=== PATIENT | male | born 1955 | race Caucasian/White ===

== ENCOUNTER 2017-09-13 10:36 | Emergency (ER) | payer BC ==
[~2017-09-13] VITALS: Ht 180.3 cm; Wt 95.0 kg
[2017-09-13 10:57] LABS: BASOPHILS % (AUTO) 0.5 % (0-1); EOSINOPHILS # (AUTO) 0.2 X10'3 (0-0.9); HEMATOCRIT 41.8 % (42.0-52.0); HEMOGLOBIN 14.3 g/dl (14.0-17.9); LYMPHOCYTES # (AUTO) 1.3 X10'3 (1.1-4.8); LYMPHOCYTES % (AUTO) 17.1 % (21-51); MEAN CORPUSCULAR HGB CONC 34.3 % (33.0-36.5); MEAN CORPUSCULAR VOLUME 90.6 FL (78-98); MEAN PLATELET VOLUME 9.2 FL (7.4-10.4); MONOCYTES # (AUTO) 0.5 X10'3 (0-0.9); MONOCYTES % (AUTO) 6.8 % (2-12); NEUTROPHILS # (AUTO) 5.8 X10'3 (1.8-7.7); NEUTROPHILS % (AUTO) 73.6 % (42-75); PLATELET COUNT 201 X10'3 (140-440); RED BLOOD COUNT 4.62 X10'6 (4.70-6.10); RED CELL DISTRIBUTION WIDTH 15.2 % (11.5-14.5); WHITE BLOOD COUNT 7.9 X10'3 (4.5-11.0)
[2017-09-13 11:08] LABS: PARTIAL THROMBOPLASTIN TIME 25 SECONDS (22-32); PROTHROMBIN TIME 10.3 SECONDS (9.0-12.0)
[2017-09-13 11:15] LABS: ALANINE AMINOTRANSFERASE 21 U/L (12-78); ALBUMIN 3.5 G/DL (3.4-5.0); ALBUMIN/GLOBULIN RATIO 0.9 (1.1-1.5); ALKALINE PHOSPHATASE 52 IU/L (46-116); ANION GAP 10 (8-16); ASPARTATE AMINO TRANSFERASE 15 U/L (10-37); BILIRUBIN,TOTAL 0.5 MG/DL (0.1-1.0); BLOOD UREA NITROGEN 21 MG/DL (7-18); CALCIUM 8.5 MG/DL (8.5-10.1); CHLORIDE 107 MMOL/L (99-107); CREATININE 1.31 MG/DL (0.60-1.10); GLUCOSE 117 MG/DL (70-104); POTASSIUM 3.7 MMOL/L (3.5-5.1); SODIUM 142 MMOL/L (135-145); TOTAL CARBON DIOXIDE 24.8 MMOL/L (24-32); TOTAL PROTEIN 7.3 G/DL (6.4-8.2); eGFR 56 ML/MIN
[2017-09-13 13:44] VITALS: BP 125/69
== END 2017-09-13 13:46 | disposition home or self-care (01) ==
LOC: ER 10:36
DX: R42 Dizziness and giddiness (principal); R55 Syncope and collapse
CPT/HCPCS: 36415; 71045; 80053; 84484; 85025; 85610; 85730; 93005; 99285

== ENCOUNTER 2018-05-30 20:30 | Emergency (ER) | payer BC ==
[~2018-05-30] VITALS: Ht 180.3 cm; Wt 115.0 kg
[2018-05-30] MEDS ORDERED: normal saline 1000ml 1,000 ML IV ONE (20:50)
[2018-05-30] MEDS ORDERED: methylPREDNISolone sod succ 125mg/2ml vial IV ONE (20:50)
[2018-05-30] MEDS ORDERED: ipratropium/albuterol 3ml nebule NEB ONE (20:50)
[2018-05-30] MEDS ORDERED: levoFLOXACIN 750MG TABLET PO ONE (20:55)
[2018-05-30 22:12] LABS: BASOPHILS % (AUTO) 0.2 % (0-1); EOSINOPHILS # (AUTO) 0.7 X10'3 (0-0.9); EOSINOPHILS % (AUTO) 6.4 % (0-6); HEMATOCRIT 44.8 % (42.0-52.0); HEMOGLOBIN 14.9 g/dl (14.0-17.9); LYMPHOCYTES # (AUTO) 0.9 X10'3 (1.1-4.8); LYMPHOCYTES % (AUTO) 8.9 % (21-51); MEAN CORPUSCULAR HEMOGLOBIN 30.2 PG (27.0-31.0); MEAN CORPUSCULAR HGB CONC 33.2 % (33.0-36.5); MEAN CORPUSCULAR VOLUME 90.9 FL (78-98); MEAN PLATELET VOLUME 9.6 FL (7.4-10.4); MONOCYTES % (AUTO) 9.5 % (2-12); NEUTROPHILS # (AUTO) 7.9 X10'3 (1.8-7.7); PLATELET COUNT 154 X10'3 (140-440); RED BLOOD COUNT 4.93 X10'6 (4.70-6.10); RED CELL DISTRIBUTION WIDTH 15.3 % (11.5-14.5); WHITE BLOOD COUNT 10.5 X10'3 (4.5-11.0)
[2018-05-30 22:25] LABS: ALANINE AMINOTRANSFERASE 25 U/L (12-78); ALBUMIN 3.6 G/DL (3.4-5.0); ALBUMIN/GLOBULIN RATIO 1.1 (1.1-1.5); ALKALINE PHOSPHATASE 60 IU/L (46-116); ANION GAP 11 (8-16); ASPARTATE AMINO TRANSFERASE 17 U/L (10-37); BILIRUBIN,TOTAL 0.4 MG/DL (0.1-1.0); BLOOD UREA NITROGEN 24 MG/DL (7-18); BUN/CREATININE RATIO 19.4 (5.4-32.0); CALCIUM 8.2 MG/DL (8.5-10.1); CHLORIDE 105 MMOL/L (99-107); CREATININE 1.24 MG/DL (0.60-1.10); GLUCOSE 112 MG/DL (70-104); POTASSIUM 3.6 MMOL/L (3.5-5.1); SODIUM 140 MMOL/L (135-145); TOTAL CARBON DIOXIDE 23.7 MMOL/L (24-32); eGFR 59 ML/MIN
[2018-05-30 22:27] VITALS: BP 147/102
--- NOTE | 2018-05-30 22:29 | NUR ---
PT REPORTS HIS BREATHING IS "MUCH BETTER" - PT DOES APPEAR MORE RELAXED HOWEVER STILL HAS WHEEZES PRESENT TO ALL WARD. WILL NOTIFY
[2018-05-30 22:32] LABS: TROPONIN I < 0.04 NG/ML (0.0-0.05)
[2018-05-30] MEDS ORDERED: magnesium 2GM in 50ml NS 50 ML IV ONE (22:35)
[2018-05-30] MEDS ORDERED: albuterol 2.5 mg/0.5ml nebule NEB ONE (22:35)
[2018-05-30 22:37] LABS: PARTIAL THROMBOPLASTIN TIME < 20 SECONDS (22-32)
[2018-05-30] MEDS ORDERED: albuterol 2.5 MG/3 ML nebule NEB ONE ×2 (22:45→22:50)
[2018-05-30] MEDS ORDERED: LEVO750T21 PO (23:30)
[2018-05-30] MEDS ORDERED: PRED20TA PO (23:30)
== END 2018-05-31 01:09 | disposition home or self-care (01) ==
LOC: ER 20:30
DX: J45.901 Unspecified asthma with (acute) exacerbation (principal); J22 Unspecified acute lower respiratory infection
CPT/HCPCS: 36415; 71045; 80053; 83880; 84484; 85025; 85610; 85730; 93005; 94640; 94760; 96365; 96375; 99284; J2930; J3475; J7030; J7611

== ENCOUNTER 2018-06-24 00:29 | Inpatient (IN) | payer BC | END 2018-06-25 14:55 | disposition home or self-care (01) | LOC: ER 00:29 → ED HOLD 03:57 → PCU 3S 06:36 ==

== ENCOUNTER 2021-02-11 08:32 | Emergency (ER) | payer BC, MEDICAID ==
[~2021-02-11] VITALS: Ht 180.3 cm; Wt 113.6 kg
[~2021-02-11 08:32] MED LIST: ALB0.5UD IH; ALBU6.7H9 INH; GUAI600T45 PO; LEVO750T46 PO; NOR5T PO; PANT40TA54 PO; SYN0.088T PO
[2021-02-11 09:01] VITALS: BP 100/70
[2021-02-11] MEDS ORDERED: LIDOcaine 5% patch TP STA (13:07)
[2021-02-11] MEDS ORDERED: dexamethasone sod phosphate 10mg/ml inj IM STA (13:07)
[2021-02-11] MEDS ORDERED: TRAM50TA2 PO (14:29)
== END 2021-02-11 14:46 | disposition home or self-care (01) ==
LOC: ER 08:33
DX: S22.080A Wedge compression fracture of T11-T12 vertebra, initial encounter for closed fracture (principal); G89.29 Other chronic pain; G20 Parkinson's disease; J45.909 Unspecified asthma, uncomplicated; Z72.89 Other problems related to lifestyle; Z79.2 Long term (current) use of antibiotics; Z79.899 Other long term (current) drug therapy; W18.30XA Fall on same level, unspecified, initial encounter; Y93.89 Activity, other specified; Y92.89 Other specified places as the place of occurrence of the external cause; Y99.8 Other external cause status
CPT/HCPCS: 72100; 72128; 96372; 99284; J1100

== ENCOUNTER 2022-07-26 13:24 | Emergency (ER) | payer MEDICARE, MEDICAID ==
[~2022-07-26] VITALS: Ht 177.8 cm; Wt 104.0 kg
[~2022-07-26 13:24] MED LIST changes: +ALBU6.7H14 INH; -ALBU6.7H9 INH; -LEVO750T46 PO; +LEVO750T68 PO
[2022-07-26 14:16] LABS: BASOPHILS # (AUTO) 0.1 X10'3 (0-0.2); BASOPHILS % (AUTO) 0.9 % (0-1); EOSINOPHILS # (AUTO) 0.8 X10'3 (0-0.9); EOSINOPHILS % (AUTO) 11.3 % (0-6); HEMATOCRIT 43.7 % (42.0-52.0); HEMOGLOBIN 14.6 g/dl (14.0-17.9); LYMPHOCYTES # (AUTO) 1.1 X10'3 (1.1-4.8); LYMPHOCYTES % (AUTO) 16.4 % (21-51); MEAN CORPUSCULAR HEMOGLOBIN 32.8 PG (27.0-31.0); MEAN CORPUSCULAR HGB CONC 33.3 g/dL (33.0-36.5); MEAN CORPUSCULAR VOLUME 98.5 FL (78-98); MEAN PLATELET VOLUME 9.1 FL (7.4-10.4); MONOCYTES # (AUTO) 0.5 X10'3 (0-0.9); MONOCYTES % (AUTO) 7.5 % (2-12); NEUTROPHILS # (AUTO) 4.3 X10'3 (1.8-7.7); NEUTROPHILS % (AUTO) 63.9 % (42-75); PLATELET COUNT 252 X10'3 (140-440); RED BLOOD COUNT 4.44 X10'6 (4.70-6.10); RED CELL DISTRIBUTION WIDTH 14.7 % (11.5-14.5); WHITE BLOOD COUNT 6.7 X10'3 (4.5-11.0)
[2022-07-26 14:31] LABS: ALANINE AMINOTRANSFERASE 7 U/L (12-78); ALBUMIN 3.6 G/DL (3.4-5.0); ALKALINE PHOSPHATASE 59 IU/L (46-116); ANION GAP 13 (8-16); ASPARTATE AMINO TRANSFERASE 26 U/L (10-37); BILIRUBIN,TOTAL 0.8 MG/DL (0.1-1.0); BLOOD UREA NITROGEN 15 MG/DL (7-18); BUN/CREATININE RATIO 15.2 (5.4-32.0); CALCIUM 8.8 MG/DL (8.5-10.1); CHLORIDE 103 MMOL/L (99-107); CREATININE 0.99 MG/DL (0.60-1.10); GLUCOSE 98 MG/DL (70-104); SODIUM 136 MMOL/L (135-145); TOTAL CARBON DIOXIDE 20.5 MMOL/L (24-32); TOTAL PROTEIN 7.1 G/DL (6.4-8.2); eGFR 76 ML/MIN
[2022-07-26 14:48] LABS: POTASSIUM 3.6 MMOL/L (3.5-5.1)
[2022-07-26] MEDS ORDERED: CARB1TAB60 PO (16:11)
--- NOTE | 2022-07-26 16:14 | NUR ---
SPOKE WITH FAMILY MEMEBER WHO IS AN RN - SHE STATES PT HAS BEEN HYPOTENSIVE AND FALLING SINCE THE CARBIDOPA-LEVODOPA 25/100 DOSE WAS CHANGED TO 2 TABS TID - THE NEUROLOGIST WANTS HIM TO TAKE ACTUAL SINEMET INSTEAD OF THE GENERIC THEY THINK THIS IS ANOTHER CONTRIBUTING FACTOR.
[2022-07-26] MEDS ORDERED: LIDOcaine 1% 30ml preserv. free vial IJ STA (16:31)
[2022-07-26] MEDS ORDERED: ringers solution, lacted 1,000 ML IV ONE (17:50)
[2022-07-26] MEDS ORDERED: HYDROcodone/acetaminophen 10/325mg tab PO ONE (19:20)
[2022-07-26 19:26] VITALS: BP 141/91
== END 2022-07-26 19:28 | disposition home or self-care (01) ==
LOC: ER 13:26
DX: S63.255A Unspecified dislocation of left ring finger, initial encounter (principal); S63.257A Unspecified dislocation of left little finger, initial encounter; J45.909 Unspecified asthma, uncomplicated; Z79.899 Other long term (current) drug therapy; W17.89XA Other fall from one level to another, initial encounter; Y93.89 Activity, other specified; Y92.89 Other specified places as the place of occurrence of the external cause; Y99.8 Other external cause status
CPT/HCPCS: 26770; 36415; 71045; 73120; 73130; 73610; 80053; 82948; 83880; 84484; 85025; 93005; 96360; 96361; 99285; J7120; A6449

== ENCOUNTER 2023-10-14 21:07 | Emergency (ER) | payer MEDICARE, MEDICAID ==
[~2023-10-14] VITALS: Ht 177.8 cm; Wt 95.5 kg
[~2023-10-14 21:07] MED LIST changes: +CARB1TAB60 PO
[2023-10-14] MEDS: LIDOcaine 1% 30ml preserv. free vial SQ STA (22:48)
[2023-10-14] MEDS: TETanus/Pertussis (Acell)/Diphther VAC/PF (Tdap-Adult) 0.5ml syringe IMVAC ONE (22:50)
[2023-10-14] MEDS ORDERED: CEPH-585 PO (23:32)
[2023-10-14] MEDS ORDERED: HYDR-3965 PO (23:32)
[2023-10-14 23:44] VITALS: BP 117/80; PULSE 71; RESP 18; TEMP 98.4; O2SAT 93
== END 2023-10-14 23:46 | disposition home or self-care (01) ==
LOC: ER 21:08
DX: S63.280A Dislocation of proximal interphalangeal joint of right index finger, initial encounter (principal); J45.909 Unspecified asthma, uncomplicated; Z79.899 Other long term (current) drug therapy; Z79.2 Long term (current) use of antibiotics; W19.XXXA Unspecified fall, initial encounter; Y93.89 Activity, other specified; Y92.89 Other specified places as the place of occurrence of the external cause; Y99.8 Other external cause status
CPT/HCPCS: 26770; 73110; 73120; 73130; 90471; 90715; 99284; J7030; A6449